=== PATIENT | female | born 1960 | race Caucasian/White ===

== ENCOUNTER 2025-01-07 12:30 | Emergency (ER) | payer BC, MEDICARE ==
[~2025-01-07] VITALS: Ht 160 cm; Wt 108.5 kg
[~2025-01-07 12:30] MED LIST: ASPI-611 PO; B PLEX PO; CALC-793 PO; COMPOUND CREAM VG; MAGN500C4 PO; METF-516 PO; PENT100C9 PO; PROGESTRONE PO; [UNRECOGNIZED DRUG - CODE] PO; [UNRECOGNIZED DRUG - OTHER] PO; [UNRECOGNIZED DRUG - OTHER] VG
[2025-01-07 12:34] VITALS: TEMP 97.1
--- NOTE | 2025-01-07 12:52 | ELECTROCARDIOGRAPH REPORT ---
[facility] Test Date: 2025-01-07 Test Time: 12:49:55 Pat Name: SANTOS SALINAS Department: [facility]-ER Patient ID: [facility]-[id number] Room: Gender: F [employer]ger: : 1960 Requested By: ONDINA CONRAD Order Number: [id number] Reading MD: Measurements Intervals Rice Rate: 69 P: 56 ME: 168 QRS: -21 QRSD: 98 T: 58 QT: 383 QTc: 411 Interpretive Statements Sinus rhythm Atrial premature complex Borderline left axis deviation Please click the below link to view image of tracing.
[2025-01-07 13:07] LABS: MEAN PLATELET VOLUME 7.5 FL (7.4-10.4); RED CELL DISTRIBUTION WIDTH 14.1 % (11.5-14.5)
[2025-01-07 13:15] LABS: CREATININE 0.75 MG/DL (0.40-0.90); TOTAL CARBON DIOXIDE 25.7 MMOL/L (24-32); eCRCL 61 ML/MIN; eGFR 77 ML/MIN
[2025-01-07 13:21] LABS: PRO BRAIN NATRIURETIC PEPTIDE < 30 PG/ML (0-125)
--- NOTE | 2025-01-07 13:27 | RADIOLOGY REPORT ---
DI CHEST,SINGLE VIEW, HISTORY: CP COMPARISON: None None TECHNICAL DATA: 1 view of the chest was obtained. FINDINGS: Lines and tubes: None Cardiomediastinal silhouette: normal Pulmonary vasculature: normal Lung expansion: normal Lung airspace: normal Lung interstitium: normal Pleura: normal Pneumothorax: no Bones: Unremarkable Other: no IMPRESSION: No acute intrathoracic abnormality.
--- NOTE | 2025-01-07 16:06 | Physician Documentation ---
History of Present Illness General Chief Complaint: Dizziness Stated Complaint: NEAR SYNCOPE Time Seen by MD: 15:24 OK to notify your PCP?: No Primary Medical Doctor: KRISTIE Source: patient, RN notes reviewed Mode of Arrival: POV Exam Limitations: no limitations History of Present Illness Initial Comments 64 year old female, with a history of atrial fibrillation on a blood thinner followed by Dr. Roel Chiu, presents complaining of an episode of lightheadedness that began around 1130 today. At the time patient reports he was sitting down and talking on the phone. She suddenly felt a warm sensation and felt as if she was going to pass out. She stood up and began walking around the house. At the time she mostly had lightheadedness that lasted several minutes. Patient denies having any shortness of breath or chest pain at the time. Later, patient reports that her blood pressure has been abnormal for the last couple of weeks, does not give any values. She had a similar episode that occurred in 2022, as well as 30 minutes of amne amalia at the time. She was seen by Dr. Chiu, land title examiner, who determined she was in atrial fibrillation and started her on a blood thinner. Medication Reconciliation Allergies: Coded Allergies: Latex, Natural Rubber (Verified Allergy, Unknown, RASH, 06/22/15) Sulfa (Sulfonamide Antibiotics) (Verified Allergy, Unknown, 03/31/15) hydrocodone (Verified Allergy, Unknown, 03/31/15) VOMITING nickel (Verified Allergy, Unknown, RASH, 06/22/15) tramadol (Verified Allergy, Unknown, 03/31/15) VARGAS, VOMITING, DIZZINESS Scheduled Aspirin (Aspir 81), 1 TABLET PO HS, (Reported) Calcium Carbonate/Vitamin D3 (Vitamin D3 5,000 Unit Tablet), 2 TABLET PO HS, (Reported) Magnesium Oxide (Magnesium), 1,000 MG PO HS, (Reported) Metformin HCl (Metformin HCl ER), 2 TABLET PO BID, (Reported) Methylsulfonylmethane (Msm), 2 TAB PO HS, (Reported) Pentosan Polysulfate Sodium (Elmiron), 1 CAP PO DAILY, (Reported) [B-Plex], 1-2 TAB PO DAILY, (Reported) [Compound Cream], 0.5 VG DAILY, (Reported) [Cs Testosterone], 0.5 GM VG MWF, (Reported) [L-Progestrone], 30 MG PO HS, (Reported) [Liothy-T3,T4], 4-75 MCG PO DAILY, (Reported) Past Medical History Past Medical History: Atrial Fibrillation, Hypertension, Cholelithiasis, Diabetes Past Surgical History: cholecystectomy, hysterectomy Alcohol Use: None Drug Use: none Lives with: Family Lives In: Home Review of Systems All Other Systems at this time: Reviewed and Negative ROS As stated above in the HPI, otherwise all systems are reviewed and negative. Physical Exam Physical Exam Vital Signs: RN Vital Signs have been reviewed: Yes, Temperature: 97.1, Source: Temporal, Heart Rate: 81, Respiratory Rate: 21, BP: 161/93, Pulse Oximetry: 96, Weight: 108.500 Oxygen Flow Rate: 0 Pulse Oximetry Reflects: adequate oxygenation Physical Exam VITALS: Reviewed and as above. GENERAL: Alert, no apparent distress. HEENT: Normocephalic, atraumatic, PERRL, EOMI, dry mucosa, no erythema RESPIRATORY: Lungs clear, normal breath sounds, no respiratory distress. CHEST: No accessory muscle use, no retractions CV: Occasional irregular beat, otherwise: Regular rate, rhythm, no edema, no murmur, No: JVD GI: Soft, non-tender, bowels sounds present, no rebound, guarding, or rigidity MUSCULOSKELETAL No deformities, no edema SKIN: Warm and dry, no rash NEURO: Oriented x4, No motor or sensory deficit PSYCH: Normal mood and affect, no agitation Progress Results/Orders Reviewed/noted all lab results: Yes Results/Orders Vital Signs 01/07/25 01/07/25 01/07/25 01/07/25 12:34 14:29 15:20 16:14 Temp 97.1 Pulse 76 73 81 71 Resp 18 23 21 17 B/P (MAP) 176/94 148/90 (109) 161/93 (115) 161/94 (116) Pulse Ox 98 98 96 96 O2 Flow Rate 0 0 0 0 Laboratory Tests Test 01/07/25 12:49 01/07/25 14:43 White Blood Count 9.0 Red Blood Count 5.03 Hemoglobin 14.8 Hematocrit 45.0 Mean Corpuscular Volume 89.4 Mean Corpuscular Hemoglobin 29.4 Mean Corpuscular Hemoglobin Concent 32.9 L Red Cell Distribution Width 14.1 Platelet Count 309 Mean Platelet Volume 7.5 Neutrophils (%) (Auto) 70.5 Lymphocytes (%) (Auto) 20.6 L Monocytes (%) (Auto) 6.5 Eosinophils (%) (Auto) 1.6 Basophils (%) (Auto) 0.8 Neutrophils # (Auto) 6.3 Lymphocytes # (Auto) 1.9 Monocytes # (Auto) 0.6 Eosinophils # (Auto) 0.1 Basophils # (Auto) 0.1 CBC Comment Sodium Level 141 Potassium Level 3.8 Chloride Level 107 Carbon Dioxide Level 25.7 Anion Gap 8 Blood Urea Nitrogen 14 Creatinine 0.75 Estimated GFR/1.73 m2 77 BUN/Creatinine Ratio 18.7 Glucose Level 99 Calcium Level 9.4 Total Bilirubin 0.5 Aspartate Amino Transf (AST/SGOT) 18 Alanine Aminotransferase (ALT/SGPT) 22 Alkaline Phosphatase 67 Troponin I High Sensitivity 5 5 Pro-B-Type Natriuretic Peptide < 30 Total Protein 7.9 Albumin 3.9 Globulin 4.0 Albumin/Globulin Ratio 1.0 L Chemistry Comments Troponin I High Sens Percent Delta 0 Troponin I Hi Sens Absolute Change 0 EKG/XRAY/CT/US/VASC/MRI EKG : Additional Comment 1249: EKG interpreted by myself to show NSR at a rate of 69bpm, LAD, no acute ST changes. Chest X-Ray : Additional Comments DI CHEST,SINGLE VIEW, HISTORY: CP COMPARISON: None None TECHNICAL DATA: 1 view of the chest was obtained. FINDINGS: Lines and tubes: None Cardiomediastinal silhouette: normal Pulmonary vasculature: normal Lung expansion: normal Lung airspace: normal Lung interstitium: normal Pleura: normal Pneumothorax: no Bones: Unremarkable Other: no IMPRESSION: No acute intrathoracic abnormality. Reviewed by myself, Dr. Estevez. Medical Decision Making Additional information obtaine: old records Findings 1249: EKG interpreted by myself to show NSR at a rate of 69bpm, LAD, no acute ST changes. Departure Time of Disposition: 16:38 Disposition: 01 HOME / SELF CARE / HOMELESS Impression: Primary Impression: Dizziness Additional Impression: Palpitations Condition: Stable Discharge Instructions: Dizziness Additional Instructions: Continue your normal medications as prescribed. Follow up with the regular doctor and land title examiner. Return to the ER for loss of consciousness, chest pain, shortness of breath, fever, or other concerns. Education Educated: Patient Educated regarding: diagnosis, treatment, need for follow up Signature Scribe Signature: Scribed for Derrick Estevez MD by Alex Hill . 01/07/25 16:21 DERRICK ESTEVEZ MD Jan 07, 2025 16:06 ALEX MORELAND Jan 07, 2025 16:29
[2025-01-07 16:45] VITALS: BP 143/87; PULSE 73; RESP 17; O2SAT 97
== END 2025-01-07 16:49 | disposition home or self-care (01) ==
LOC: ER 12:32
DX: R42 Dizziness and giddiness (principal); R00.2 Palpitations; E11.9 Type 2 diabetes mellitus without complications; I10 Essential (primary) hypertension; I48.91 Unspecified atrial fibrillation; Z90.710 Acquired absence of both cervix and uterus; Z90.49 Acquired absence of other specified parts of digestive tract; Z91.040 Latex allergy status; Z88.2 Allergy status to sulfonamides; Z88.5 Allergy status to narcotic agent; Z79.01 Long term (current) use of anticoagulants; Z79.82 Long term (current) use of aspirin; Z79.899 Other long term (current) drug therapy
CPT/HCPCS: 36415; 71045; 80053; 83880; 84484; 85025; 93005; 99285